=== PATIENT | female | born 1945 | race Caucasian/White ===

== ENCOUNTER 2022-04-06 10:41 | Observation (INO) | payer MEDICARE, OTHER ==
[~2022-04-06] VITALS: Ht 172.7 cm; Wt 120.8 kg
[2022-04-06] VITALS (13 sets, daily range): BP systolic 106–155; BP diastolic 53–82
[2022-04-06] MEDS ORDERED: diphenhydrAMINE 25mg capsule PO PRN (11:05)
[2022-04-06] MEDS ORDERED: GLUC-95 PO (11:11)
[2022-04-06] MEDS ORDERED: INSU100V9 SQ (11:11)
[2022-04-06] MEDS ORDERED: LOSA100T57 PO (11:11)
[2022-04-06] MEDS ORDERED: NEBI10TA12 PO (11:11)
[2022-04-06] MEDS ORDERED: AMLO10TA13 PO (11:11)
[2022-04-06] MEDS ORDERED: GABA300C PO (11:11)
[2022-04-06] MEDS ORDERED: ASPI81TA52 PO (11:11)
[2022-04-06] MEDS ORDERED: METF-436 PO (11:11)
[2022-04-06] MEDS ORDERED: ATOR-2 PO (11:11)
[2022-04-06 11:42] LABS: BASOPHILS # (AUTO) 0.1 X10'3 (0-0.2); BASOPHILS % (AUTO) 0.9 % (0-1); EOSINOPHILS # (AUTO) 0.3 X10'3 (0-0.9); EOSINOPHILS % (AUTO) 2.7 % (0-6); HEMATOCRIT 44.8 % (35.0-45.0); HEMOGLOBIN 14.5 g/dl (12.0-16.0); LYMPHOCYTES # (AUTO) 2.1 X10'3 (1.1-4.8); LYMPHOCYTES % (AUTO) 19.1 % (21-51); MEAN CORPUSCULAR HGB CONC 32.4 g/dL (33.0-36.5); MEAN PLATELET VOLUME 8.9 FL (7.4-10.4); MONOCYTES # (AUTO) 0.7 X10'3 (0-0.9); MONOCYTES % (AUTO) 6.7 % (2-12); NEUTROPHILS # (AUTO) 7.7 X10'3 (1.8-7.7); NEUTROPHILS % (AUTO) 70.6 % (42-75); PLATELET COUNT 338 X10'3 (140-440); RED BLOOD COUNT 5.82 X10'6 (4.20-5.60); WHITE BLOOD COUNT 10.8 X10'3 (4.5-11.0)
[2022-04-06 11:52] LABS: ALBUMIN 4.1 G/DL (3.4-5.0); ANION GAP 11 (8-16); BLOOD UREA NITROGEN 12 MG/DL (7-18); BUN/CREATININE RATIO 18.2 (6.6-38.0); CALCIUM 9.8 MG/DL (8.5-10.1); CHLORIDE 105 MMOL/L (99-107); CREATININE 0.66 MG/DL (0.40-0.90); GLUCOSE 104 MG/DL (70-104); MAGNESIUM 1.7 MG/DL (1.5-2.4); POTASSIUM 3.6 MMOL/L (3.5-5.1); SODIUM 142 MMOL/L (135-145); TOTAL CARBON DIOXIDE 25.7 MMOL/L (24-32); eGFR 88 ML/MIN
[2022-04-06] MEDS: normal saline 1,000 ML IV SCH ×2 (12:46→18:05)
[2022-04-06] MEDS ORDERED: iohexol 350MG/ML 100ml bottle IV ONE ×2 (13:18→15:37)
[2022-04-06] MEDS ORDERED: midazolam 1 mg/ML 2ml injection ONE ×2 (13:18→15:05)
[2022-04-06] MEDS ORDERED: LIDOcaine 1% 30ml preserv. free vial ONE (13:18)
[2022-04-06] MEDS ORDERED: heparin 1,000unit/ml 10ml vial 10 ML ONE (13:18)
[2022-04-06] MEDS ORDERED: fentaNYL/PF 50MCG/1 ML 2ML syringe ONE (13:19)
[2022-04-06] MEDS ORDERED: proCHLORperazine 10 MG/2 ml inj ONE (14:56)
[2022-04-06] MEDS ORDERED: iohexol 350 MG/ML 50ML vial IV ONE ×2 (15:28→16:00)
[2022-04-06] MEDS ORDERED: ticagrelor 90mg tablet ONE (16:11)
[2022-04-06] MEDS ORDERED: normal saline 1000ml 1,000 ML IV SCH (16:40)
--- NOTE | 2022-04-06 16:55 | NUR ---
After assisting patient on and off the bedpan, about a 4 inch hematoma palpated. Applied steady firm manual pressure for 10 minutes. Hematoma much smaller and softer. Will continue to monitor.
--- NOTE | 2022-04-06 17:45 | NUR ---
At 1710, noticed pt had a much larger hematoma, about 6" in diameter. Immediately applied firm steady pressure for 15 mins above the puncture site. Continued to apply pressure at different points of the hematoma to help push it out for the next 20 mins. At 1745, applied Femstop. Pt complaining of 8/10 pain from the pushing/Femstop pressure. At 1750, notified Dr. Mena. New orders for toradol and morphine now. Orders to admit patient overnight. Will continue to monitor. At this point, Groin is much softer. Hematoma is still present but about 3-4".
[2022-04-06] MEDS ORDERED: morphine 2 MG/ML inj. syringe IV ONE (17:50)
[2022-04-06] MEDS ORDERED: ketorolac trometh. 30mg/ml inj. IV ONE (17:50)
[2022-04-06] MEDS ORDERED: ondansetron/PF 4mg/2ml inj ONE (17:55)
[2022-04-06] MEDS ORDERED: ketorolac tromethamine 15mg/ml inj. IV ONE (17:55)
--- NOTE | 2022-04-06 19:00 | NUR ---
Called report to Severiano HART in PCU. Pt to be transferred to room 3010.
--- NOTE | 2022-04-06 19:30 | NUR ---
Pt transferred to room 3010. Handoff given to Severiano HART. Patient in stable condition.
[2022-04-06] MEDS: normal saline 1000ml 1,000 ML IV SCH (19:55)
[2022-04-06] MEDS ORDERED: insulin Lispro (HumaLOG) vial - multi-dose SQ SCH (22:25)
[2022-04-06] MEDS ORDERED: DEXTROSE 15 GM of carb/4 tabs (each vial/BOTTLE has 4 tablets) PO PRN ×2 (22:25)
[2022-04-06] MEDS ORDERED: dextrose 50%-water 50ml dispensing syringe IV PRN ×2 (22:25)
[2022-04-06] MEDS ORDERED: glucagon, human recombinant 1mg kit SUBCUT PRN (22:25)
[2022-04-07 02:00] VITALS: BP 137/62
[2022-04-07] MEDS: normal saline 1000ml 1,000 ML IV SCH ×3 (05:20→05:22)
[2022-04-07 07:07] VITALS: BP 151/74
[2022-04-07] MEDS ORDERED: TICA90TA PO (09:17)
--- NOTE | 2022-04-07 11:35 | NUR ---
Pt MD nita gave order to d/c tp home. Pt's picked up brillinta and showed LN medication upon d/c. PIV d/c'd cannula intact. Pt took all belongings and signed paperwork. Pt expressed undwerstanding to restart home meds on 04/09/22. Pt transported off floor at approx 1130 via w/c to family vehicle, driving.
[2022-04-07] MEDS ORDERED: insulin glargine (Lantus) pen - multi-dose SQ SCH (21:00)
== END 2022-04-07 11:27 | disposition home or self-care (01) ==
LOC: SSTAY O 10:41 → PCU 3S 16:48
PROVIDERS: ADMIT Internal Medicine Cardiovascular Disease; ATTEND Internal Medicine Cardiovascular Disease
DX: I35.0 Nonrheumatic aortic (valve) stenosis (principal); I25.10 Atherosclerotic heart disease of native coronary artery without angina pectoris; E78.5 Hyperlipidemia, unspecified; I10 Essential (primary) hypertension; E11.9 Type 2 diabetes mellitus without complications; Z95.5 Presence of coronary angioplasty implant and graft; Z90.710 Acquired absence of both cervix and uterus; Z79.899 Other long term (current) drug therapy
CPT/HCPCS: 0523T; 36415; 80048; 82948; 83735; 85025; 85610; 92979; 93005; 93460; 96374; C1725; C1751; C1753; C1760; C1769; C1874; C1894; C9600; G0378; J0780; J1644; J2250; J2270; J2405; J3010; J3490; J7030; Q0163; Q9967; 92978; 99152; 99153; A6258; A6449; J1815

== ENCOUNTER 2023-11-01 07:48 | Day surgery (SDC) | payer MEDICARE, OTHER ==
[~2023-11-01] VITALS: Ht 172.7 cm; Wt 116.2 kg
[2023-11-01] VITALS (11 sets, daily range): BP systolic 146–185; BP diastolic 74–106; PULSE 72–99; RESP 11–21; TEMP 98.2; O2SAT 93–98
[~2023-11-01 07:48] MED LIST: AMLO10TA13 PO; ASPI81TA52 PO; ATOR-2 PO; GABA300C PO; GLUC-95 PO; INSU100V9 SQ; LOSA100T58 PO; METF-436 PO; NEBI10TA12 PO; TICA90TA PO
[2023-11-01] MEDS ORDERED: NEBI10TA2 PO (08:22)
[2023-11-01] MEDS ORDERED: HYDR12.55 PO (08:22)
[2023-11-01 08:39] LABS: BASOPHILS # (AUTO) 0.1 X10'3 (0-0.2); BASOPHILS % (AUTO) 1.2 % (0-1); EOSINOPHILS # (AUTO) 0.2 X10'3 (0-0.9); HEMATOCRIT 44.2 % (35.0-45.0); HEMOGLOBIN 14.5 g/dl (12.0-16.0); LYMPHOCYTES # (AUTO) 1.8 X10'3 (1.1-4.8); LYMPHOCYTES % (AUTO) 24.6 % (21-51); MEAN CORPUSCULAR HGB CONC 32.9 g/dL (33.0-36.5); MEAN CORPUSCULAR VOLUME 85.2 FL (78-98); MEAN PLATELET VOLUME 9.4 FL (7.4-10.4); MONOCYTES # (AUTO) 0.6 X10'3 (0-0.9); MONOCYTES % (AUTO) 8.8 % (2-12); NEUTROPHILS # (AUTO) 4.5 X10'3 (1.8-7.7); NEUTROPHILS % (AUTO) 62.4 % (42-75); PLATELET COUNT 263 X10'3 (140-440); RED BLOOD COUNT 5.18 X10'6 (4.20-5.60); RED CELL DISTRIBUTION WIDTH 14.9 % (11.5-14.5); WHITE BLOOD COUNT 7.2 X10'3 (4.5-11.0)
[2023-11-01 08:45] LABS: ALBUMIN 3.6 G/DL (3.4-5.0); ANION GAP 10 (8-16); BLOOD UREA NITROGEN 17 MG/DL (7-18); BUN/CREATININE RATIO 23.6 (10.0-20.0); CALCIUM 9.2 MG/DL (8.5-10.1); CHLORIDE 107 MMOL/L (99-107); CREATININE 0.72 MG/DL (0.40-0.90); GLUCOSE 121 MG/DL (70-104); MAGNESIUM 1.7 MG/DL (1.5-2.4); POTASSIUM 3.9 MMOL/L (3.5-5.1); SODIUM 141 MMOL/L (135-145); TOTAL CARBON DIOXIDE 24.4 MMOL/L (24-32); eCRCL 67 ML/MIN; eGFR 79 ML/MIN
[2023-11-01] MEDS: diphenhydrAMINE 25mg capsule PO PRN (08:50)
[2023-11-01] MEDS: sodium bicarbonate 1meq/ml syr 150 ML in dextrose 5%-water 1,000 ML IV ONE (08:51)
[2023-11-01] MEDS: normal saline 1,000 ML IV SCH (08:51)
[2023-11-01 08:58] LABS: PROTHROMBIN TIME 10.3 SECONDS (9.0-12.0)
[2023-11-01] MEDS ORDERED: iohexol 350MG/ML 100ml bottle IV ONE (09:30)
[2023-11-01] MEDS ORDERED: heparin 1,000unit/ml 10ml vial 10 ML ONE (09:30)
[2023-11-01] MEDS ORDERED: verapamil 2.5 mg/ml inj IV ONE (09:30)
[2023-11-01] MEDS ORDERED: LIDOcaine 1% (10mg/ml) 2ml vial ONE (09:30)
[2023-11-01] MEDS ORDERED: fentaNYL/PF 50MCG/1 ML 2ML syringe ONE (09:30)
[2023-11-01] MEDS ORDERED: iohexol 350 MG/ML 50ML vial IV ONE ×2 (09:30→10:43)
[2023-11-01] MEDS ORDERED: midazolam 1 mg/ML 2ml injection ONE (09:30)
[2023-11-01] MEDS ORDERED: nitroGLYCERIN 500mcg/5mL D5W 5 ML IV ONE (09:31)
[2023-11-01] MEDS ORDERED: LIDOcaine 1% 30ml preserv. free vial ONE (09:38)
[2023-11-01] MEDS ORDERED: hydrALAZINE 20mg/ml inj. IV ONE (10:33)
[2023-11-01] MEDS ORDERED: enalaprilat dihydrate 2.5mg/2ml vial IV ONE (10:45)
[2023-11-01] MEDS ORDERED: HYDROcodone/acetaminophen 10/325mg tab PO PRN (11:45)
[2023-11-01] MEDS ORDERED: ondansetron/PF 4mg/2ml inj IV PRN (11:45)
[2023-11-01] MEDS ORDERED: proCHLORperazine 10 MG/2 ml inj IV PRN (11:45)
[2023-11-01] MEDS ORDERED: HYDROcodone/acetaminophen 5mg/325mg tablet PO PRN (11:45)
== END 2023-11-01 13:47 | disposition home or self-care (01) ==
LOC: SSTAY O 07:48
PROVIDERS: ATTEND Internal Medicine Cardiovascular Disease
DX: I35.0 Nonrheumatic aortic (valve) stenosis (principal); I25.10 Atherosclerotic heart disease of native coronary artery without angina pectoris; I27.20 Pulmonary hypertension, unspecified; Z79.899 Other long term (current) drug therapy; E78.5 Hyperlipidemia, unspecified; D64.9 Anemia, unspecified; Z95.5 Presence of coronary angioplasty implant and graft
CPT/HCPCS: 36415; 80048; 82948; 83735; 85025; 85610; 93005; 93460; 99152; 99153; A6258; C1725; C1751; C1760; C1769; C1887; C1894; J0360; J1644; J2001; J2250; J3010; J3490; J7030; J7070; Q0163; Q9967; Z7610

== ENCOUNTER 2023-11-09 10:48 | Outpatient (CLI) | payer MEDICARE, OTHER ==
[~2023-11-09 10:48] MED LIST changes: -AMLO10TA13 PO; -ASPI81TA52 PO; -GLUC-95 PO; +HYDR12.55 PO; +IODIXANOL 320 MG/ML INFUS..BTL 100ML IV ONE; -NEBI10TA12 PO; +NEBI10TA2 PO; -TICA90TA PO
[2023-11-09 11:16] LABS: BASOPHILS # (AUTO) 0.1 X10'3 (0-0.2); EOSINOPHILS # (AUTO) 0.3 X10'3 (0-0.9); EOSINOPHILS % (AUTO) 3.1 % (0-6); HEMATOCRIT 44.2 % (35.0-45.0); HEMOGLOBIN 14.4 g/dl (12.0-16.0); LYMPHOCYTES % (AUTO) 21.4 % (21-51); MEAN CORPUSCULAR HEMOGLOBIN 28.1 PG (27.0-31.0); MEAN CORPUSCULAR HGB CONC 32.7 g/dL (33.0-36.5); MEAN CORPUSCULAR VOLUME 85.9 FL (78-98); MEAN PLATELET VOLUME 8.8 FL (7.4-10.4); MONOCYTES # (AUTO) 0.9 X10'3 (0-0.9); MONOCYTES % (AUTO) 9.4 % (2-12); NEUTROPHILS # (AUTO) 6.2 X10'3 (1.8-7.7); NEUTROPHILS % (AUTO) 65.1 % (42-75); PLATELET COUNT 255 X10'3 (140-440); RED BLOOD COUNT 5.14 X10'6 (4.20-5.60); RED CELL DISTRIBUTION WIDTH 14.8 % (11.5-14.5); WHITE BLOOD COUNT 9.5 X10'3 (4.5-11.0)
[2023-11-09 11:30] LABS: APTT 34 SECONDS (22-32); PROTHROMBIN TIME 10.7 SECONDS (9.0-12.0)
[2023-11-09 11:38] LABS: ALANINE AMINOTRANSFERASE 19 U/L (12-78); ALBUMIN 3.5 G/DL (3.4-5.0); ALBUMIN/GLOBULIN RATIO 0.9 (1.1-1.5); ALKALINE PHOSPHATASE 104 IU/L (46-116); ANION GAP 6 (8-16); ASPARTATE AMINO TRANSFERASE 18 U/L (10-37); BILIRUBIN,TOTAL 0.5 MG/DL (0.1-1.0); BLOOD UREA NITROGEN 14 MG/DL (7-18); BUN/CREATININE RATIO 20.3 (10.0-20.0); CALCIUM 9.2 MG/DL (8.5-10.1); CHLORIDE 108 MMOL/L (99-107); CREATININE 0.69 MG/DL (0.40-0.90); GLUCOSE 94 MG/DL (70-104); POTASSIUM 3.8 MMOL/L (3.5-5.1); PRO BRAIN NATRIURETIC PEPTIDE 726 PG/ML (0-450); SODIUM 142 MMOL/L (135-145); TOTAL CARBON DIOXIDE 28.5 MMOL/L (24-32); TOTAL PROTEIN 7.6 G/DL (6.4-8.2); eGFR 83 ML/MIN
[2023-12-10] MEDS ORDERED: IODIXANOL 320 MG/ML INFUS..BTL 100ML IV ONE (08:00)
== END 2023-11-09 23:59 | disposition home or self-care (01) ==
LOC: VAS 10:48
PROVIDERS: ATTEND Internal Medicine Cardiovascular Disease
DX: I35.0 Nonrheumatic aortic (valve) stenosis (principal); R06.02 Shortness of breath; I65.29 Occlusion and stenosis of unspecified carotid artery; K57.30 Diverticulosis of large intestine without perforation or abscess without bleeding; N28.1 Cyst of kidney, acquired; M47.815 Spondylosis without myelopathy or radiculopathy, thoracolumbar region; I70.0 Atherosclerosis of aorta; I25.10 Atherosclerotic heart disease of native coronary artery without angina pectoris; Z90.6 Acquired absence of other parts of urinary tract; Z90.49 Acquired absence of other specified parts of digestive tract
CPT/HCPCS: 36415; 71046; 71275; 74174; 75572; 80053; 83880; 85025; 85610; 85730; 93880; Q9967